=== PATIENT | female | born 1960 | race Caucasian/White ===

== ENCOUNTER 2025-04-07 17:57 | Outpatient (CLI) | payer BC, SELFPAY ==
--- NOTE | 2025-04-07 18:15 | MR_ITS ---
[address] [address] Phone:?[phone] Fax:?[phone] Referring Physician Information: Bereket Rueda M.D. [address] [facility] [address] Phone:?[phone] Fax:?[phone] Patient:Antonio Diaz D.O.B:?1960 Sex:?Female Phone:?[phone] [facility] MRN:?[id number] Exam Date:?04/07/2025 EXAM: MRI of the RIGHT KNEE, without contrast CLINICAL INFORMATION: Female, 64 years old, with right knee pain INDICATION: Patellofemoral osteoarthritis PRIOR SURGERY: None reported. PLAIN FILMS: Radiograph 03/24/2025. COMPARISONS: No prior MRIs available. TECHNICAL INFORMATION: Using a 1.5T MR scanner and a localizing surface coil: sagittals: PD, PDFS coronals: PD, T2FS axials: PD, PDFS SEDATION: None CONTRAST: None FINDINGS: Knee joint: Effusion: Physiologic right knee effusion. Popliteal cyst: Trace Loose bodies: None. Subcutaneous and extra-articular soft tissues: Mild prepatellar subcutaneous soft tissue edema/skin thickening. Ligaments: ACL: Intact ACL anteromedial and posterolateral bundles, without sprain or tear. PCL: Intact PCL, without acute or chronic injury. MCL: Intact MCL superficial and deep layers, without injury. LCL: Intact LCL, without injury. Posterolateral corner: No posterolateral corner soft tissue injury. Popliteus, biceps femoris, iliotibial band, popliteofibular ligament and lateral gastrocnemius are intact. Posteromedial corner: No posteromedial corner soft tissue injury. Semimembranosus, pes anserine tendons and posterior oblique ligament are without injury, tendinopathy or bursitis. Extensor mechanism: Patellar tendon: Intact, without tendinopathy. Quadriceps tendon: Intact, without tendinopathy. Retinacula: Medial and lateral retinacula are intact. Fat pads: Unremarkable infrapatellar Hoffa's, quadriceps and prefemoral fat pads. Medial compartment: Medial meniscus: There is horizontal undersurface tearing along the posterior horn of the medial meniscus measuring approximately 8 mm in length (sagittal series 5 image 21). Fraying of the apical free edge of the posterior horn/root is also felt to be present. No peripheral meniscal extrusion. No parameniscal ganglion cyst. Medial femoral condyle: Grade II chondromalacia with signal heterogeneity and thinning along the central weightbearing medial femoral condyle, with grade 3 thinning anteriorly (sagittal series 5 image 21). Mild peripheral osteophytosis. Medial tibial plateau: No chondromalacia or osteochondral abnormality. Lateral compartment: Lateral meniscus: No articular surface, meniscosynovial junction or root tear. No displacement, extrusion or parameniscal cyst. Lateral femoral condyle: No chondromalacia or osteochondral abnormality. Lateral tibial plateau: Grade II chondromalacia with signal heterogeneity along the central lateral tibial plateau. Patellofemoral joint: Patella: Broad-based grade IV chondromalacia of the mid patellar articular cartilage Grade IV chondromalacia involving the medial and central patella mid to inferior measuring up to 2.7 x 3.5 cm. Grade Mild peripheral osteophytosis Trochlea: Grade IV chondromalacia of the medial trochlea measuring approximately 1.9 x 2.4 cm. Additional grade 3 thinning of the lateral and central trochlea, as well. Proximal tibiofibular joint: Unremarkable, without evidence of ligament sprain injury, joint effusion or adjacent marrow edema. Bones: No stress/occult fractures or other marrow edema/pathology. IMPRESSION: 1. Patellofemoral joint osteoarthritis with relatively broad-based grade 3 and grade IV chondromalacia. 2. Grade II/III chondral thinning of the anterior and central weightbearing medial femoral condyle. 3. Horizontal undersurface tearing along the posterior horn of the medial meniscus. 4. No cruciate or collateral ligament sprain/tear. 5. No knee joint effusion. KME Electronically signed on 04/08/2025 12:41:00 PM by Temitope Coughlin M.D.
== END 2025-04-07 17:58 | disposition home or self-care (01) ==
LOC: MRI 17:58
PROVIDERS: PCP Nurse Practitioner Family; Visit Provider Orthopaedic Surgery
DX: M25.561 Pain in right knee (principal); M17.11 Unilateral primary osteoarthritis, right knee; M22.41 Chondromalacia patellae, right knee; S83.241A Other tear of medial meniscus, current injury, right knee, initial encounter
CPT/HCPCS: 73721

== ENCOUNTER 2025-07-03 11:07 | Day surgery (SDC) | payer BC, SELFPAY ==
[2025-07-03] VITALS (21 sets, daily range): BP systolic 115–141; BP diastolic 56–87; PULSE 57–74; RESP 12–20; TEMP 35.8–37.3; O2SAT 91–100; BMI 31.9
[2025-07-03] MEDS: LACTATED RINGERS 1000 ML 1,000 ML 100 ML IV (12:13)
[2025-07-03] MEDS: SODIUM CHLORIDE 0.9 % (FLUSH) 10 ML SYRINGE IVF (12:13)
[2025-07-03] MEDS: ACETAMINOPHEN 500 MG TABLET 1000 MG PO ×3 (12:15→23:41)
[2025-07-03] MEDS: CELECOXIB 200 MG CAPSULE PO ×2 (12:15→20:21)
[2025-07-03] MEDS: OXYCODONE (CR) 10 MG TAB.ER.12H PO (12:15)
--- NOTE | 2025-07-03 12:34 | SUR.PREOP ---
TIME?OUT:?1234 PT/RN/MDA?VERIFICATION?OF?SURGICAL?SITE,?PROCEDURE,?AND?CONSENT OBTAINED?PRIOR?TO?INVASIVE?PROCEDURE.
[2025-07-03] MEDS: MIDAZOLAM HCL 1 MG/ML inj IVP (12:35)
--- NOTE | 2025-07-03 12:36 | P.ORPRC_ITS ---
Procedure Note Date of procedure: 07/03/25 Procedure: PREOPERATIVE DIAGNOSIS: 1. Right knee osteoarthritis POSTOPERATIVE DIAGNOSES: 1. Right knee osteoarthritis PROCEDURE: 1. Right total knee arthroplasty SURGEON: Chris Obrien MD MARKETING FINANCE SPECIALIST: Karina Chu. A skilled assistant professor of philosophy was critical for this case to aid in patient positioning, tissue retraction, bone exposure, limb manipulation/positioning, patient safety, and closure. ANESTHESIA: Spinal with adductor canal and genicular nerve blocks IMPLANTS: DePuy Attune (Cementless, Press-Fit, Posterior Stabilized, Rotating Platform): Femoral posterior stabilized component size 5; Tibial Base Rotating Platform size 6; DePuy Attune Tibial Insert Rotating Platform Posterior Stabilized size 6, 5 mm; and Attune patella medialized dome size 35 mm. EBL: 100 ml TOURNIQUET TIME: 60 minutes at 250 mmHg COMPLICATIONS: None evident INDICATIONS: Yareli is a 64-year-old female who has chronic right knee pain secondary to osteoarthritis. Symptoms have worsened despite non operative treatment. Patient is now interested in proceeding with total knee arthroplasty for improved function, decreased pain and better quality of life. Prior to the procedure, risks and benefits of the operative and non operative treatment were discussed with the patient. After discussion of risks, benefits, and alternatives of surgery, informed consent was obtained and the operative site was marked. FINDINGS: Grade 4 chondromalacia with eburnated bone of the patella and trochlear; grade 3 chondromalacia of the medial femoral condyle, medial tibial plateau, lateral tibial plateau. PROCEDURE: Patient was seen preoperatively and operative site was marked. Abductor canal and genicular nerve blocks were performed by anesthesia staff. Patient was then brought to the operating room, where spinal anesthesia was administered by the anesthesia staff. Patient was then placed into the supine position on the OR table and all bony prominences were well padded. 2 g IV Ancef and 1 g tranexamic acid administered preoperatively. A tourniquet was placed on the thigh of the operative leg. The right lower extremity was prepped and draped in usual sterile fashion. A surgical time-out was performed confirming patient identity, surgical procedure, and surgical site. Operative extremity was elevated and exsanguinated with an Esmarch and tourniquet was inflated to 250 mmHg. The tourniquet remained inflated for 60 minutes before it was deflated. An anterior longitudinal incision was made and carried down through the subcutaneous tissues. The quadriceps tendon, medial patellar retinaculum, and patellar tendon were visualized. A medial quadriceps splitting parapatellar arthrotomy was performed. The proximal medial tibia was subperiosteal exposed distal to the joint line. The retropatellar fat pad was excised. The knee was flexed and patella everted. A curved osteotome was used to enter the semimembranous bursa medially at the level of the joint line. The medial meniscus was excised at the meniscal synovial junction. The anterior cruciate ligament was excised. A Z-retractor was placed medially and a right angle Hohmann retractor was placed anterior lateral to the lateral meniscus. A partial lateral meniscectomy was performed. The intramedullary drill was utilized to open the intramedullary canal. ?Intramedullary alignment guide was inserted. The distal femoral cutting block, set at 5 degrees of valgus with a distal femoral resection of 9 mm, was secured with pins, and the distal femoral osteotomy was performed. ?Using the posterior condylar referencing guide, femur was sized to a size 5, and pins were drilled for 3 degrees of external rotation, which corresponded with Whitesides line and the epicondylar axis. ?A 4-in-1 cutting jig was inserted at 3 degrees of external rotation. ?The anterior and posterior condylar cuts were performed followed by anterior and posterior chamfer cuts. The box cutting guide was then secured to the distal femur with pins and the box osteotomy was performed. ? ? We then turned our attention back to the tibia. ?Ranasall maneuver was performed and remainder of the lateral meniscus, medial meniscus, and PCL were excised. ?A retractor was placed along the posterior tibia. ?Extramedullary guide was secured around the ankle in line with the subcutaneous tibial crest. ?The tibial cutting block, set to remove 5 mm of bone from medial tibial plateau and a mm of bone from lateral tibial plateau, was secured proximally with pins. ?Tibial osteotomy was performed with care taken to protect the collateral ligaments. ?Spacer blocks were inserted, which confirmed symmetric flexion and extension gaps.?The tibia was then sized to a size 6, and tibial base plate was secured. Tibia was then prepped with the appropriate drill and punch. Trial femur and tibial components with a 5 mm tibial polyethylene component were inserted. The knee was then brought out to full extension. ?The patella was everted and osteochondral junction was exposed. ?The patella measured 19 mm in thickness. ?The patellar osteotomy was performed, leaving 13 mm of remnant patella. ?Three lug holes were drilled for the 35 mm patella button and the patella button was inserted. The knee was brought through a full range of motion. ?Soft tissue tension, collateral ligament stability, and patella tracking were confirmed to be satisfactory. ?Trial components were then removed. ?Tourniquet was then released. Total tourniquet time was 60 minutes. Hemostasis was achieved with electrocautery. Formal DePuy Attune uncemented, press-fit tibial and femoral components were then secured into position followed by the 5 mm rotating platform tibial insert. The Press-Fit 35 mm Attune patella component was then secured into position. Knee was again placed through full range of motion. Soft tissue tension collateral ligament stability and patellar tracking were again confirmed to be satisfactory. ? The knee was then soaked in a sterile iodine solution and soft tissues were irrigated with pulse lavage. ? The parapatellar arthrotomy was closed with #1 Vicryl lvflxi-to-adgne interrupted sutures followed by a running #1 Stratafix suture. ?Subcutaneous soft tissues were again irrigated normal saline. Skin was closed with 2-0 Vicryl inverted, interrupted, subcutaneous stitches followed by running 2-0 Stratafix. ?The incision was then sealed with Dermabond and sterile dressing was applied. ?The patient was then transferred to the recovery room in stable condition. POSTOPERATIVE PLAN: 1. Patient will be admitted to the hospital, where she will follow the postoperative total knee arthroplasty protocol. 2. Mobilize with physical therapy and occupational therapy. -Weight bear as tolerated right lower extremity. 3. Pain control: -Acetaminophen and Oxycodone for pain as needed. -IV pain medications for breakthrough pain. -Ice for pain and swelling. 4. Postoperative prophylactic antibiotics x2 doses 5. DVT prophylaxis: -aspirin 81 mg b.i.d. for 35 days. -SCDs 6. Follow-up in Orthopedic Clinic in 1-2 weeks.
--- NOTE | 2025-07-03 12:36 | W.PM.H&PU ---
History & Physical Update History & Physical Update H&P Reviewed and patient assessed: No changes noted
[2025-07-03] MEDS: TRANEXAMIC ACID 100 MG/ML INJ 1000 MG IV (13:10)
[2025-07-03] MEDS: LACTATED RINGERS 1000 ML 1,000 ML 125 ML IV (13:25)
--- NOTE | 2025-07-03 13:38 | W.PM.NB ---
Nerve Block Nerve Block Time Seen by Provider: 12:30 Date Seen: 07/03/25 Type of block requested by surgeon for post-operative analgesia: adductor canal Side: right Time out performed: Yes Verification of patient name: Yes Verification of date of : Yes Site marking: site marked Name of person performing procedure: Hugh Continuous monitoring Was continuous monitoring of O2 sat, B/P, custodial services manager, recorded every 15 minutes?: Yes Procedure Checklist: sterile prep, needles and gloves Ultrasound guided. Images saved: Yes Medications given in 5ml increments after negative aspiration: Ropivicaine %: 0.5 mL: 20 Needle gauge: 20 Precedex (mcg): 25 Patient tolerated procedure well: Yes Block Charges Block Charge (with Pro Fee): Femoral Nerve Use of Ultrasound Machine for Block: Yes- US Guidance/pain block
--- NOTE | 2025-07-03 13:41 | P.NB_ITS ---
Nerve Block Nerve Block Time Seen by Provider: 12:30 Date Seen: 07/03/25 Type of block requested by surgeon for post-operative analgesia: geniculars Side: right Time out performed: Yes Verification of patient name: Yes Verification of date of : Yes Site marking: site marked Name of person performing procedure: Hugh Continuous monitoring Was continuous monitoring of O2 sat, B/P, electronic device monitor, recorded every 15 minutes?: Yes Procedure Checklist: sterile prep, needles and gloves Ultrasound guided. Images saved: No Medications given in 5ml increments after negative aspiration: Ropivicaine %: 0.5 mL: 12 Needle gauge: 22 Patient tolerated procedure well: Yes Block Charges Block Charge (with Pro Fee): Genicular Nerve Block Use of Ultrasound Machine for Block: No
--- NOTE | 2025-07-03 15:09 | CRLHL7_ITS ---
For Patients: As a result of the Century Cures Act, medical imaging exams and procedure reports are released immediately into your electronic medical record. You may view this report before your referring provider. If you have questions, please contact your health care provider. INDICATION: Post op right knee TECHNIQUE: AP and cross-table lateral views of the right knee COMPARISON: 03/24/2025 FINDINGS: Immediate post op changes of right total knee arthroplasty. Prosthetic components well-seated and aligned. IMPRESSION: Immediate post op changes of right total knee arthroplasty without evidence of complication Dictated by Yovani Avery MD @ 07/04/2025 5:32:47 AM (Electronically Signed)
--- NOTE | 2025-07-03 15:13 | P.ANES_ITS ---
Anesthesia Charges Start Date/Time Anesthesia Start Date: 07/03/25 Anesthesia Start Time: 12:51 Stop Date/Time Anesthesia Stop Date: 07/03/25 Anesthesia Stop Time: 15:09 Coding CPT Codes CPT Codes: ANESTH KNEE ARTHROPLASTY - 97523 ([id number]) P2 - PATIENT W/MILD SYST DISEASE, QZ - WAD IMPREGNATOR SVC W/O SHELL SIEVE OPERATOR BY
--- NOTE | 2025-07-03 15:13 | W.ANESCHARGE ---
Anesthesia Charges Start Date/Time Anesthesia Start Date: 07/03/25 Anesthesia Start Time: 12:51 Stop Date/Time Anesthesia Stop Date: 07/03/25 Anesthesia Stop Time: 15:09 Coding CPT Codes CPT Codes: ANESTH KNEE ARTHROPLASTY - 75096 ([id number]) P2 - PATIENT W/MILD SYST DISEASE, QZ - PAINT STOCKMAN SVC W/O COSMETIC DENTIST BY
--- NOTE | 2025-07-03 15:40 | SUR.PHASEI ---
patient met discharge criteria per anesthesia
--- NOTE | 2025-07-03 16:04 | PM.IMCN1 ---
Date of Consult Consult date: 07/03/25 Requesting Physician: Orthopedics Primary Care Provider: Mery Doll CNP Consult Narrative Narrative: HOSPITALIST CONSULT Procedure: Right total knee arthroplasty SURGEON: Chris Obrien MD ANESTHESIA: Spinal with adductor canal and genicular nerve blocks EBL: 100 ml COMPLICATIONS: None evident The hospital medicine team was asked by the orthopedic surgery team to manage the patient's general health; post-op care, hypothyroidism There have been no perioperative complications. I have updated and reviewed the active medical problems, past medical history, past surgical history, social history, allergies and medications in our electronic EMR. This includes a cross reference to care everywhere in [facility] and with [facility] databases. PHYSICAL EXAM: CODE STATUS: FULL CODE CONSTITUTIONAL: Conversive, good historian. A/O. Knows setting and context. VITAL SIGNS: see record. HEENT: Normocephalic, atraumatic. PERRL, EOMI, conjunctivae pink, no scleral icterus. Ears and nose externally normal. Pharynx normal. NECK: No JVD. No carotid bruit, no thyromegaly, no adenopathy. CHEST: Clear to auscultation bilaterally HEART: S1 and S2 normal. ABDOMEN: Flat, soft, nontender. Normal bowel sounds. Moderately obese. EXTREMITIES: No edema. MUSCULOSKELETAL: right knee dressing is intact; NVI to the toes; no obvious bleeding. NEURO: Cranial nerves intact. Mentation normal. Normal affect. SKIN: No rashes, petechiae, concerning changes PSYCHIATRIC: Mentation normal. INVESTIGATIONS: EMR Reviewed; Pre-OP Reviewed DISPOSITION: DVT: Agree with Ortho team decision GI: [facility] Medical History (Updated 07/03/25 @ 16:29 by Yue Obrien MD) Osteoarthritis of left knee ?M17.12 - Unilateral primary osteoarthritis, left knee (ICD-10) Bilateral knee pain ?M25.561 - Pain in right knee (ICD-10) ?M25.562 - Pain in left knee (ICD-10) Low BP ?I95.9 - Hypotension, unspecified (ICD-10) PONV (postoperative nausea and vomiting) ?R11.2 - Nausea with vomiting, unspecified (ICD-10) ?Z98.890 - Other specified postprocedural states (ICD-10) Hypothyroidism ?E03.9 - Hypothyroidism, unspecified (ICD-10) Neck pain ?M54.2 - Cervicalgia (ICD-10) Cervical radiculopathy ?M54.12 - Radiculopathy, cervical region (ICD-10) Surgical History (Updated 07/03/25 @ 16:29 by Yue Obrien MD) Status post total right knee replacement ?Z96.651 - Presence of right artificial knee joint (ICD-10) Status post cervical arthrodesis ?Z98.1 - Arthrodesis status (ICD-10) H/O cervical spine surgery ?Z98.890 - Other specified postprocedural states (ICD-10) H/O: hysterectomy ?Z90.710 - Acquired absence of both cervix and uterus (ICD-10) H/O discectomy ?Z98.890 - Other specified postprocedural states (ICD-10) H/O partial thyroidectomy ?E89.0 - Postprocedural hypothyroidism (ICD-10) H/O vein stripping ?Z98.890 - Other specified postprocedural states (ICD-10) History of carpal tunnel release of both wrists ?Z98.890 - Other specified postprocedural states (ICD-10) History of cholecystectomy ?Z90.49 - Acquired absence of other specified parts of digestive tract (ICD-10) H/O bursectomy ?Z98.890 - Other specified postprocedural states (ICD-10) H/O dilation and curettage ?Z98.890 - Other specified postprocedural states (ICD-10) H/O shoulder surgery ?Z98.890 - Other specified postprocedural states (ICD-10) H/O wisdom tooth extraction ?K08.409 - Partial loss of teeth, unspecified cause, unspecified class (ICD-10) Social History What is your current living situation?: I presently have a place to live Problems where you live: no known problems In the past 12 months, utilities in danger of being shut off: no In past 12 months, lack of transportation kept you from medical appts, meetings, work, or getting things needed for daily living: no In the past 12 mos, have been you worried that your food would run out before you had money to buy more?: never true In the past 12 mos, the food you bought just didn't last and you didn't have money to buy more?: never true Smoking Status: Never smoker Do you use any of these nicotine containing products: None How often do you have a drink containing alcohol: 2-4 times a month How many standard drinks containing alcohol do you have on a typical day: 1 or 2 How often do you have six or more drinks on one occasion: Never AUDIT-C Alcohol total score: 2 Non-prescribed substance use: denies use Caffeine: Yes (coffee) How often does anyone, including family, friends and others, physically hurt you: never How often does anyone, including family, friends and others, insult or talk down to you: never How often does anyone, including family, friends and others, threaten you with harm: never How often does anyone, including family, friends and others, scream or curse at you: never Meds Home Medications and Allergies Home Medications ?Medication ?Instructions ?Recorded ?Confirmed ?Type levothyroxine 75 mcg tablet 75 mcg PO DAILY 03/24/25 07/03/25 History celecoxib 200 mg capsule (Celebrex) 200 mg PO DAILY 07/03/25 07/03/25 History tirzepatide (weight loss) 5 mg/0.5 5 mg subcut Q7D 07/03/25 07/03/25 History mL subcutaneous pen injector (Zepbound) Allergies Allergy/AdvReac Type Severity Reaction Status Date / Time cortisone Allergy edema Verified 06/17/25 08:18 Exam Const: Vital Signs, click to edit/add: Vital Signs - 24 hr 07/03/25 12:11 07/03/25 12:35 07/03/25 12:40 Temperature 97.4 F L Pulse Rate 57 L 64 57 L Respiratory Rate 16 16 16 Blood Pressure 135/87 140/74 H 115/60 Pulse Oximetry 98 100 100 Oxygen Delivery Me thod Room Air Nasal Cannula Nasal Cannula Oxygen Flow Rate 3 3 07/03/25 12:45 07/03/25 15:04 07/03/25 15:10 Temperature 98.9 F 98.9 F Pulse Rate 59 L 67 67 Respiratory Rate 16 17 12 Blood Pressure 116/56 L 122/69 116/73 Pulse Oximetry 100 93 94 Oxygen Delivery Me thod Nasal Cannula Room Air Room Air Oxygen Flow Rate 3 07/03/25 15:15 07/03/25 15:20 07/03/25 15:25 Temperature 98.9 F 98.9 F 98.9 F Pulse Rate 68 65 64 Respiratory Rate 17 20 16 Blood Pressure 121/71 119/69 122/67 Pulse Oximetry 93 91 94 Oxygen Delivery Me thod Room Air Room Air Room Air Oxygen Flow Rate 07/03/25 15:30 Temperature 99.1 F Pulse Rate 63 Respiratory Rate 12 Blood Pressure 127/71 Pulse Oximetry 94 Oxygen Delivery Me thod Room Air Oxygen Flow Rate Assessment and Plan Assessment and plan (1) Status post total right knee replacement: Problem comment: Dr. Sarah Obrien 07/03/25 Hospital medicine team is happy to follow the patient through to discharge. We are expecting a routine postoperative course. I have reconciled home medications and completed our part of the discharge. Status: Acute (2) Hypothyroidism: Problem comment: Continue home med Status: Acute
[2025-07-03] MEDS: ONDANSETRON 2 MG/ML inj 4 MG IVP ×2 (17:08→23:09)
--- NOTE | 2025-07-03 18:41 | PC.NURSE ---
Pt admitted to the floor 153, pain reported 3-7/10 throughout shift. Pt reported nausea, IV nausea meds given, pt states feeling relief. pt assist of 1 w/walker, voided 600ml. Pt sleeping comfortably at this time, chest rise and fall noted, family at bedside
[2025-07-03] MEDS: CEFAZOLIN 2 GM in 0.9 % SODIUM CHLORIDE Mini-bag 100 ML IVPB (20:19)
[2025-07-03] MEDS: ASPIRIN 81 MG TABLET EC PO (20:21)
[2025-07-03] MEDS: SENNOSIDES 1 TAB TABLET 2 TAB PO (20:22)
[2025-07-03] MEDS: LACTATED RINGERS 1000 ML 1,000 ML 75 ML IV (21:47)
[2025-07-04 00:47] VITALS: BP 121/70; PULSE 82; RESP 16; TEMP 36.6; O2SAT 94
[2025-07-04 03:00] VITALS: BP 122/74; PULSE 64; RESP 18; TEMP 36.8; O2SAT 96
[2025-07-04] MEDS: CEFAZOLIN 2 GM in 0.9 % SODIUM CHLORIDE Mini-bag 100 ML IVPB (03:18)
[2025-07-04] MEDS: ACETAMINOPHEN 500 MG TABLET 1000 MG PO (06:38)
[2025-07-04] MEDS: LEVOTHYROXINE 75 MCG TABLET PO (06:38)
[2025-07-04] MEDS: ONDANSETRON 2 MG/ML inj 4 MG IVP (06:56)
[2025-07-04 07:00] VITALS: PULSE 69; RESP 16; O2SAT 94
[2025-07-04 07:33] VITALS: BP 121/70; PULSE 69; RESP 16; TEMP 36.7; O2SAT 94
--- NOTE | 2025-07-04 09:13 | P.ORPN_ITS ---
Subjective Subjective Time Seen by Provider: 08:30 Date Seen: 07/04/25 Principal diagnosis: Day 1 s/p right total knee arthroplasty (07/03/25, Dr. Obrien) Interval history: Yareli is doing well this morning and is resting comfortably in bed. Accompanied by her David. She c/o moderate right knee pain that is well managed with icing, acetaminophen and oxycodone PRN. She does admit to postoperative nausea and is requesting to be discharged with an antiemetic medication. Denies: fever, chills, chest pain, SOB, numbness and tingling distally. Patient has not yet had a bowel movement and reports no flatulence yet. No acute events over night. Out patient PT is scheduled to begin 07/08 at [facility]. Ortho Exam Narrative Exam Narrative: Incision/Dressing: Dressing appears clean and dry. No drainage present. Mepilex intact. Right knee appears moderately swollen but supple with no obvious erythema, fluctuance or excessive warmth. No ecchymosis or erythematous streaking. Warmth around the wound is appropriate. Ice is being utilized as needed. CMS: Intact distally with 2+ Dorsalis pedis and Posterior Tibial pulses. Confirmed sensation distally. Unable to perform SLR without using her upper extremities to assist with lifting her right leg. Calf: Right calf is supple, with no swelling, pain, tenderness, erythema, discoloration or coolness to the touch. Constitutional: Patient is alert and oriented x3. Patient is in no acute distress and converses without labored breathing. Patient is able to make decisions and demonstrates good insight. Patient is pleasant and cooperative. Affect is full range and appropriate for the circumstances. Const Vital Signs, click to edit/add: Vital Signs - 24 hr 07/03/25 12:11 07/03/25 12:35 07/03/25 12:40 Temperature 97.4 F L Pulse Rate 57 L 64 57 L Pulse Rate [Right Pulse Oximeter] Respiratory Rate 16 16 16 Blood Pressure 135/87 140/74 H 115/60 Blood Pressure [Left Arm] Pulse Oximetry 98 100 100 Oxygen Delivery Method Room Air Nasal Cannula Nasal Cannula Oxygen Flow Rate 3 3 07/03/25 12:45 07/03/25 15:04 07/03/25 15:10 Temperature 98.9 F 98.9 F Pulse Rate 59 L 67 67 Pulse Rate [Right Pulse Oximeter] Respiratory Rate 16 17 12 Blood Pressure 116/56 L 122/69 116/73 Blood Pressure [Left Arm] Pulse Oximetry 100 93 94 Oxygen Delivery Method Nasal Cannula Room Air Room Air Oxygen Flow Rate 3 07/03/25 15:15 07/03/25 15:20 07/03/25 15:25 Temperature 98.9 F 98.9 F 98.9 F Pulse Rate 68 65 64 Pulse Rate [Right Pulse Oximeter] Respiratory Rate 17 20 16 Blood Pressure 121/71 119/69 122/67 Blood Pressure [Left Arm] Pulse Oximetry 93 91 94 Oxygen Delivery Method Room Air Room Air Room Air Oxygen Flow Rate 07/03/25 15:30 07/03/25 15:36 07/03/25 15:51 Temperature 99.1 F 97.9 F Pulse Rate 63 Pulse Rate [Right Pulse Oximeter] 62 61 Respiratory Rate 12 14 16 Blood Pressure 127/71 Blood Pressure [Left Arm] 130/72 119/64 Pulse Oximetry 94 93 95 Oxygen Delivery Method Room Air Oxygen Flow Rate 07/03/25 16:06 07/03/25 16:21 07/03/25 16:51 Temperature 97.2 F L Pulse Rate Pulse Rate [Right Pulse Oximeter] 60 63 66 Respiratory Rate 18 16 Blood Pressure Blood Pressure [Left Arm] 120/69 127/69 121/73 Pulse Oximetry 92 Oxygen Delivery Method Oxygen Flow Rate 07/03/25 17:00 07/03/25 18:30 07/03/25 20:21 Temperature 96.4 F L 98.2 F Pulse Rate Pulse Rate [Right Pulse Oximeter] 68 66 74 Respiratory Rate 20 18 Blood Pressure Blood Pressure [Left Arm] 123/78 139/77 141/74 H Pulse Oximetry 93 95 Oxygen Delivery Method Room Air Room Air Oxygen Flow Rate 07/03/25 21:21 07/03/25 22:30 07/03/25 23:00 Temperature 98.1 F 98.2 F 97.9 F Pulse Rate Pulse Rate [Right Pulse Oximeter] 70 74 63 Respiratory Rate 18 16 16 Blood Pressure Blood Pressure [Left Arm] 134/61 133/62 127/61 Pulse Oximetry 96 97 95 Oxygen Delivery Method Room Air Room Air Room Air Oxygen Flow Rate 07/03/25 23:00 07/04/25 00:47 07/04/25 03:00 Temperature 98 F 98.3 F Pulse Rate Pulse Rate [Right Pulse Oximeter] 82 64 Respiratory Rate 16 16 18 Blood Pressure Blood Pressure [Left Arm] 121/70 122/74 Pulse Oximetry 95 94 96 Oxygen Delivery Method Room Air Room Air Room Air Oxygen Flow Rate 3 07/04/25 07:33 Temperature 98.1 F Pulse Rate Pulse Rate [Right Pulse Oximeter] 69 Respiratory Rate 16 Blood Pressure Blood Pressure [Left Arm] 121/70 Pulse Oximetry 94 Oxygen Delivery Method Room Air Oxygen Flow Rate Assessment and Plan Assessment and plan (1) Status post total right knee replacement: Problem details: Dr. Sarah Obrien 07/03/25 Status: Acute Assessment and Plan: - Patient picked up aspirin, acetaminophen and senna OTC. I intentionally did not include these three medications in Yareli's discharge medications. - Complete 23 hour perioperative antibiotics. - PT/OT consults for education and assistance. Outpatient PT is scheduled to begin 07/08 at [facility]. - Weight bear as tolerated with a walker for assistance. - Prescribed analgesics as needed. Patient is content with current narcotic medications. Minimize narcotic pain medication use; wean off and discontinue as soon as possible. Zofran was prescribed to her pharmacy per her request. - DVT prophylaxis: aspirin 81 mg BID x 35 days. Also, frequent ambulation and ankle pumps when sedentary. - Social consult for discharge planning. - Anticipate patient will be discharged to home later today if the patient remains medically stable, pain is controlled and is safe with ambulation. - Return to clinic in 1 week for a wound check. Mepilex dressing will be removed at this appointment. Remove sooner if dressing becomes saturated. - Return to clinic in [address] Obrien. - Phone Orthopedics with any questions or concerns. [phone]
[2025-07-04] MEDS: SENNOSIDES 1 TAB TABLET 2 TAB PO (10:02)
[2025-07-04] MEDS: ASPIRIN 81 MG TABLET EC PO (10:02)
[2025-07-04] MEDS: CELECOXIB 200 MG CAPSULE PO (10:02)
--- NOTE | 2025-07-04 12:44 | PC.NURSE ---
End of shift-- Pleasant and cooperative, alert and oriented patient discharged to home via wheelchair with . VSS and pt is afebrile. SPO2 maintained >90% on RA. Pain appears well managed with scheduled Tylenol and Oxycodone as needed. Dressing to right knee is C/D/I and CMS is WNL. LS CTA. Pt was given Zofran and Phenergen PRN per MD order for nausea, but she was able to tolerate a regular diet for breakfast. MD was notified and pt discharged with Zofran PRN. Discharge education was provided including diagnosis info, symptoms to report, medications and follow up plan. All questions answered and SL was removed with tip intact.
== END 2025-07-04 11:56 | disposition home or self-care (01) ==
LOC: OR 11:08 → MEDSURG 11:09
PROVIDERS: PCP Nurse Practitioner Family; Visit Provider Orthopaedic Surgery
PROC: (CPT 27447; principal; 2025-07-03 12:30)
DX: M17.11 Unilateral primary osteoarthritis, right knee (principal); M22.41 Chondromalacia patellae, right knee; G89.18 Other acute postprocedural pain; E03.9 Hypothyroidism, unspecified; M54.12 Radiculopathy, cervical region
CPT/HCPCS: 27447; 01402; 64447; 64454; 73560; 76942; 97110; 97116; 97161; 97165; 97530; 97535; A9270; C1713; C1776; J0690; J1100; J1171; J2250; J2405; J2550; J2704; J2795; J3010; J3490; J7120